=== PATIENT | female | born 1965 | race Hispanic/Latino ===

== ENCOUNTER 2022-03-05 17:15 | Emergency (ER) | payer OTHER ==
--- OUTSIDE RECORDS SUMMARY | 2022-03-05 17:18 | XMS REPORT | Continuity of Care Document ---
:1965 Author Organization [facility] t Address [address] [place] [address] Care Team Providers Name Role Phone GEORGIE Attending Clinician Unavailable CONFERENCE Attending Clinician Unavailable [id number] Attending Clinician Unavailable Carlyle KIRBY Attending Clinician [id number] Attending Clinician Unavailable LIBAN Attending Clinician Unavailable Gama VERA Attending Clinician Unavailable RENETTA Attending Clinician Unavailable Payers Payer Name Policy Type Policy Number Effective Date Expiration Date Rachel RODRIGUEZ AETNA 9 [id number] 2019 HISD SELECT ACO 00:00:00 Problems Condition Condition Condition Status Onset Resolution Last Treating Co mments Source Name Details Category Date Date Treatment Clinician Date Obesity Obesity Disease Active Fifi (BMI (BMI 8-18 Seybold 30.0-34.9) 30.0-34.9) 00:00: 00 Recurrent Recurrent Disease Active 2017-09 Ben chau urinary urinary 1-16 Seybold tract tract 00:00: infection infection 00 Allergies, Adverse Reactions, Alerts This patient has no known allergies or adverse reactions. Social History Social Habit Start Date Stop Date Quantity Comments Source History SDOH Fifi taylor Alcohol Std Drinks History CHINOH Fifi taylor Alcohol Binge History CHINNC Fifi taylor Alcohol Comment Alcohol intake 2021-07-11 2021-07-11 Lifetime Fifi Chau bold 00:00:00 00:00:00 non-drinker (finding) Tobacco use and 2019-10-09 2019-10-09 Smokeless tobacco Ke lsey Seybold exposure 00:00:00 00:00:00 non-user History SDOH 2019-10-09 2019-10-09 1 Fifi Scott claudia Alcohol Frequency 00:00:00 00:00:00 Sex [birth year] At [birth year] Fifi casanova 00:00:00 00:00:00 Smoking Status Start Date Stop Date Source Never smoked tobacco Fifi Juan Antonio lowery Medications Ordered Filled Start Stop Current Ordering Indication Dosage Frequency Signature Comments Components Source Medication Medication Date Date Medication? Clinician (SIG) Name Name Nitrofurant 2020-09 Yes [id number] 100mg Take 1 Fifi oimichael Monohyd 0-22 capsule Seybo ld Macro 100 00:00: (100 mg MG oral 00 total) by Capsule mouth 2 times daily Immunizations Ordered Immunization Filled Immunization Date Status Commen ts Source Name Name Influenza Virus 2021-07-09 Completed Fifi casanova Vaccine, No Preserv, 00:00:00 age 6 months and up Tdap- (Boostrix, 2021-05-05 Completed Fifi coleman Adacel) 00:00:00 Influenza Virus 2020-05-28 Completed Fifimyrna casanova Vaccine, No Preserv, 00:00:00 age 6 months and up Vital Signs Vital Name Observation Time Observation Value Comments Source Systolic blood pressure 2021-07-09 19:59:00 126 mm[Hg] Fifi Sealybeverley Diastolic blood 2021-07-09 19:59:00 66 mm[Hg] Ben lori ybbeverley pressure Heart rate 2021-07-09 19:59:00 68 /min Fifi Rachel [place] Body temperature 2021-07-09 19:59:00 36.61 Arlin Radha tab Zaragozaybbeverley Respiratory rate 2021-07-09 19:59:00 16 /min Radha barth Seybbeverley Body height 2021-07-09 19:59:00 154.9 cm Fifi Rachel [place] Body weight 2021-07-09 19:59:00 67.858 kg Fifimyrna barthlink BMI 2021-07-09 19:59:00 28.27 kg/m2 Fifi Rachel [place] Procedures Procedure Date / Time Performed Performing Clinician Sour e URINE CULTURE, ROUTINE 2021-07-09 21:52:00 Karime Tadeo URINALYSIS, COMPLETE 2021-07-09 21:52:00 Karime Tadeo MICROSCOPIC EXAMINATION 2021-07-09 21:52:00 Karime Tadeo URINE CULTURE, ROUTINE 2021-07-09 21:52:00 Karime Tadeo y Elmer RESULT WET PREP 2021-07-09 20:39:00 Karime Tadeo ld Encounters Start End Encounter Admission Attending Care Care Encounter Source Date/Time Date/Time Type Type Clinicians Facility Department ID 2021-11-15 2021-11-15 Outpatient FIFI CALIX [id number] Fifi 14:00:00 14:00:00 Seybol d 2021-10-12 2021-10-12 Outpatient TONY CALIX [id number] Fifi 00:00:00 00:00:00 AN, Seybol d BRITNEY 2021-10-12 2021-10-12 Outpatient CONFERENCE, FIFI CALIX [id number] Fifi 00:00:00 00:00:00 BDC Seybol d 2021-09-13 2021-09-13 Outpatient CONFERENCE, FIFI CALIX [id number] Fifi 00:00:00 00:00:00 BDC Seybol d 2021-09-13 2021-09-13 Outpatient TONY CALIX [id number] Fifi 00:00:00 00:00:00 AN, Seybol d BRITNEY 2021-09-09 2021-09-09 Outpatient FIFI CALIX [id number] Fifi 10:00:00 10:00:00 Seybol d 2021-09-06 2021-09-06 Outpatient FIFI CALIX [id number] Fifi 10:00:00 10:00:00 Seybol d 2021-08-03 2021-08-03 Outpatient TONY CALIX [id number] Fifi 00:00:00 00:00:00 AN, Seybol d BIRTNEY 2021-08-03 2021-08-03 Outpatient CONFERENCE, FIFI CALIX [id number] Fifi 00:00:00 00:00:00 BDC Seybol d 2021-07-30 2021-07-30 Outpatient FIFI CALIX [id number] Fifi 12:25:00 12:25:00 Seybol d 2021-07-30 2021-07-30 Outpatient FIFIMYRNA WESLEYSEY [id number] Fifi 12:20:00 12:20:00 Seybol d 2021-07-30 2021-07-30 Outpatient FIFI FIFI [id number] Fifi 12:15:00 12:15:00 Seybol d 2021-07-30 2021-07-30 Outpatient FIFI CALIX [id number] Fifi 12:10:00 12:10:00 Seybol d 2021-07-30 2021-07-30 Outpatient TONY CALIX [id number] Fifi 00:00:00 00:00:00 AN, Seybol d BRITNEY 2021-07-09 2021-07-09 Outpatient LAB45 FIFI CALIX [id number] Fifi 16:35:00 16:35:00 Seybol d 2021-07-09 2021-07-09 Outpatient FIFI CALIX [id number] Fifi 16:00:00 16:00:00 Seybol d 2021-07-09 2021-07-09 Office JOO Tadeo [id number] Fifi 14:37:08 15:07:08 Visit [facility] [id number] Seybold DIAGNOSTI [id number] C POY SIPPI [id number] 2021-07-09 2021-07-09 Outpatient RADMISAEL CALIX [id number] Fifi 15:00:00 15:00:00 AN, Seybol d BRITNEY 2021-07-09 2021-07-09 Outpatient [id number] FIFI CALIX [id number] Fifi 08:40:00 08:40:00 Seybol d 2021-07-09 2021-07-09 Outpatient [id number] FIFI CALIX [id number] Fifi 08:30:00 08:30:00 Seybol d 2021-05-27 2021-05-27 Outpatient RADHASAUL CALIX [id number] Fifi 00:00:00 00:00:00 AN, Seybol d BRITNEY 2021-05-13 2021-05-13 Outpatient LIBAN CALIX FIFI [id number] Fifi 00:00:00 00:00:00 Seybol d 2021-05-05 2021-05-05 Outpatient LAB45 FIFI FIFI [id number] Fifi 08:45:00 08:45:00 Seybol d 2021-05-05 2021-05-05 Outpatient TONY FIFI FIFI [id number] Fifi 08:00:00 08:00:00 AN, Seybol d BRITNEY 2021-03-30 2021-03-30 Outpatient LAB45 FIFI CALIX [id number] Fifi 11:25:00 11:25:00 Seybol d 2021-03-30 2021-03-30 Outpatient CHUY FIFI CALIX [id number] Fifi 10:45:00 10:45:00 ASMI Seybol d 2020-12-28 2020-12-28 Outpatient HANSDARLENE [facility] [id number] [place] 00:00:00 00:00:00 KAREN [address] 2020-12-07 2020-12-07 Outpatient [facility] [id number] [place] 00:00:00 00:00:[address] Results Test Description Test Time Test Comments Results Result Comments Source URINE CULTURE, ROUTINE 2021-07-11 06:06:00 Test Item Value Reference Range Interpretation Comme nts URINE CULTURE, ROUTINE (test code = Final report 630-4) BRANDON (test code = BRANDON) [facility] results reported in Eastern Time. [facility] Clinical Information:SRC:Urine*Urine ?[facility] Source of Specimen:Urine*Urine Fifi PayneURINE CULTURE, ROUTINE [id number] 06:06:00RESULT 1Comment: Mixed urogenital flora10,000-25,000 colony forming units per mL [facility]IE Calix ElmerURINALYSIS, [id number] 11:11:00 Test Item Value Reference Range Interpretation Comments SPECIFIC GRAVITY 1.005-1.030 (test code = 2965-2) PH (test code = 5.0-7.5 5803-2) URINE-COLOR (test Yellow Yellow code = 5778-6) APPEARANCE (test Clear Clear code = 5767-9) WBC ESTERASE (test Negative Negative code = 5799-2) PROTEIN (test code Negative Negative/Trace = 66985-5) GLUCOSE (test code Negative Negative = 2349-9) KETONES (test code Negative Negative = 2514-8) OCCULT BLOOD (test Negative Negative code = 5794-3) BILIRUBIN (test Negative Negative code = 5770-3) UROBILINOGEN,SEMI-Q 0.2 mg/dL 0.2-1.0 N (test code = 20264-5) NITRITE, URINE Negative Negative (test code = 5802-4) MICROSCOPIC See below: Microscopic was EXAMINATION (test indicated and was code = 93888-6) performed. BRANDON (test code = [facility] results BRANDON) reported in Eastern Time. [facility] Clinical Information:SRC: Urine*Urine ?[facility] Source of Specimen: Fifi ZaragozaedilbertoMICROSCOPIC [id number] 11:11:00 Test Item Value Reference Range Interpretation Comments WBC (test code = None seen See_Comment [Automated 5821-4) message] The sy stem which generated this result transmitted reference range : 0 - 5 /hpf. The reference range was not used to interpret this result as normal/abnormal . RBC (test code = 0-2 See_Comment [Automated 63397-6) message] The sy stem which generated this result transmitted reference range : 0 - 2 /hpf. The reference range was not used to interpret this result as normal/abnormal . EPITHELIAL CELLS None seen See_Comment [Automated (NON RENAL) (test message] T system code = 5787-7) which generat ed this result transmitted reference range : 0 - 10 /hpf. The reference range was not used to interpret this result as normal/abnormal . CASTS (test code = None seen None seen /lpf 84901-6) BACTERIA (test code None seen None seen/Few = 5769-5) BRANDON (test code = [facility] results BRANDON) reported in Eastern Time. [facility] Clinical Information:SRC: Urine*Urine ?[facility] Source of Specimen: Fifi PayneMOIRAT [id number] 22:54:00 Test Item Value Reference Range Interpretation Comments TRICHOMONAS EXAM (test Negative Negative code = 29025-6) YEAST EXAM (test code = Negative Negative 94755-9) CLUE CELL EXAM (test Negative Negative code = 84498-3) BRANDON (test code = BRANDON) [facility] results reported in Eastern Time. [facility] Clinical Information:SRC:Genit al*Vaginal swab ? [facility] Source of Specimen:Genital*Vagi nal swab Fifi Payne
[2022-03-05] MEDS ORDERED: LIDOCAINE 1% 20 ML MDV ONE (17:55)
--- NOTE | 2022-03-05 18:07 | RAD REPORT ---
EXAM DESCRIPTION: RAD - Hand Right 3 View - 03/05/2022 6:00 pm CLINICAL HISTORY: PAIN COMPARISON: No comparisons FINDINGS: No fracture or dislocation evident.
--- NOTE | 2022-03-05 18:07 | RAD REPORT ---
EXAM DESCRIPTION: RAD - Knee Left 3 View - 03/05/2022 6:00 pm CLINICAL HISTORY: PAIN COMPARISON: No comparisons FINDINGS: No fracture or dislocation suspected.
--- NOTE | 2022-03-05 18:34 | ER ---
Nurse's Notes [facility] Name: Jazmine Barnett Age: 56 yrs Sex: Female : 1965 Arrival Date: 03/05/2022 Time: 17:18 Bed 12 Private MD: Diagnosis: Laceration without foreign body, left knee Presentation: 03/05 17:31 Chief complaint: Patient states[place], pt c/o pain to left aa5 knee and right hand. Denies head injury, denies LOC. Coronavirus screen: At this time, the client does not indicate any symptoms associated with coronavirus-19. Ebola Screen: No symptoms or risks identified at this time. Initial Sepsis Screen: Does the patient meet any 2 criteria? No. Patient's initial sepsis screen is negative. Does the patient have a suspected source of infection? No. Patient's initial sepsis screen is negative. Risk Assessment: Do you want to hurt yourself or someone else? Patient reports no desire to harm self or others. Onset of symptoms was March 05, 2022. 17:31 Acuity: ASKHAN 4 aa5 17:31 Method Of Arrival: Wheelchair aa5 Historical: - Allergies: 17:32 No Known Allergies; aa5 - PMHx: 17:32 None; aa5 - PSHx: 17:32 None; aa5 - Immunization history:: Adult Immunizations unknown. - Social history:: Smoking status: Patient denies any tobacco usage or history of. Patient/guardian denies using alcohol, street drugs, The patient lives with family. - Family history:: not pertinent. Screenin:49 Abuse screen: Denies threats or abuse. Denies injuries from another. Nutritional ss screening: No deficits noted. Tuberculosis screening: Never had TB. Fall Risk None identified. Assessment: 18:00 Reassessment: Wound cleansed with Saline and Soap. ss 18:49 General: Appears in no apparent distress. comfortable, Behavior is calm, cooperative. ss Neuro: Level of Consciousness is awake, alert, obeys commands, Oriented to person, place, time, situation. Cardiovascular: Capillary refill < 3 seconds is brisk in bilateral fingers. Respiratory: Airway is patent Respiratory effort is even, unlabored, Respiratory pattern is regular, symmetrical. EENT: Oral mucosa is moist. Derm: Skin is intact, is healthy with good turgor, Skin is dry, Skin is pink, warm \T\ dry. normal. Musculoskeletal: Circulation, motion, and sensation intact. Range of motion: intact in all extremities, Swelling absent. Vital Signs: 17:31 BP 132 / 77; Pulse 85; Resp 16 S; Temp 98.5(TE); Pulse Ox 100% on R/A; Weight 65.77 kg aa5 (R); Height 5 ft. 3 in. (160.02 cm) (R); 17:31 Body Mass Index 25.69 (65.77 kg, 160.02 cm) aa5 ED Course: 17:18 Patient arrived in ED. mr 17:31 Triage completed. aa5 17:31 Arm band placed on. aa5 17:34 Sobia Yeung MD is Attending Physician. ma2 17:43 China Jain, ELISABETH is Primary Nurse. ss 18:02 XRAY Knee LEFT 3 view In Process Unspecified. EDMS 18:02 Hand Right 3 View XRAY In Process Unspecified. EDMS 18:49 Patient has correct armband on for positive identification. Bed in low position. ss 18:49 Assist provider with laceration repair on left knee that was 2.5 cm. or less using shayy. Set up tray. Performed by Sobia Yeung MD Dressed with 4X4s, Kerlix, Patient tolerated well. Patient did not have IV access during this emergency room visit. Administered Medications: 18:18 Drug: Lidocaine (1 %) 10 ml {Note: administered now by Dr. Yeung..} Volume: 20 ml; ss Route: Infiltration; Medication: 18:49 VIS not applicable for this client. ss Outcome: 18:34 Discharge ordered by . ma2 18:49 Discharged to home ambulatory, with family. ss 18:49 Condition: good 18:49 Discharge instructions given to patient, family, Instructed on discharge instructions, follow up and referral plans. medication usage, Demonstrated understanding of instructions, follow-up care, medications, Prescriptions given X 2. 18:53 Patient left the ED. ss Signatures: Dispatcher [employer] [facility] Jessica MelgarMary Ellen RN RN [facility] China Jain RN RN Alzahri, Mohammad, MD MD ma2
--- NOTE | 2022-03-05 18:35 | EDPHYS ---
Physician Documentation [facility] Name: Jazmine Barnett Age: 56 yrs Sex: Female : 1965 Arrival Date: 03/05/2022 Time: 17:18 Bed 12 Private MD: ED Physician Sobia Yeung HPI: 03/05 17:42 This 56 yrs old Female presents to ER via Wheelchair with complaints of Fall ma2 Injury, Knee Injury, Hand Injury. 17:42 This is a 56-year-old female who [place] the beach tripped with a wet rock, fell on her ma2 right hand left knee sustained abrasion to dorsal aspect of right hand, and laceration to left knee, denies any trauma no pain anywhere else, patient states she has Tdap up-to-date.. Historical: - Allergies: 17:32 No Known Allergies; aa5 - PMHx: 17:32 None; aa5 - PSHx: 17:32 None; aa5 - Immunization history:: Adult Immunizations unknown. - Social history:: Smoking status: Patient denies any tobacco usage or history of. Patient/guardian denies using alcohol, street drugs, The patient lives with family. - Family history:: not pertinent. ROS: 17:42 Constitutional: Negative for fever, chills, and weight loss. ma2 17:42 All other systems are negative. Exam: 17:42 Constitutional: This is a well developed, well nourished patient who is awake, alert, ma2 and in no acute distress. Head/Face: Normocephalic, atraumatic. Eyes: Pupils equal round and reactive to light, extra-ocular motions intact. Lids and lashes normal. Conjunctiva and sclera are non-icteric and not injected. Cornea within normal limits. Periorbital areas with no swelling, redness, or edema. ENT: Nares patent. No nasal discharge, no septal abnormalities noted. Tympanic membranes are normal and external auditory canals are clear. Oropharynx with no redness, swelling, or masses, exudates, or evidence of obstruction, uvula midline. Mucous membranes moist. Neck: Trachea midline, no thyromegaly or masses palpated, and no cervical lymphadenopathy. Supple, full range of motion without nuchal rigidity, or vertebral point tenderness. No Meningismus. Chest/axilla: Normal chest wall appearance and motion. Nontender with no deformity. No lesions are appreciated. Cardiovascular: Regular rate and rhythm with a normal S1 and S2. No gallops, murmurs, or rubs. Normal PMI, no JVD. No pulse deficits. Respiratory: Lungs have equal breath sounds bilaterally, clear to auscultation and percussion. No rales, rhonchi or wheezes noted. No increased work of breathing, no retractions or nasal flaring. Abdomen/GI: Soft, non-tender, with normal bowel sounds. No distension or tympany. No guarding or rebound. No evidence of tenderness throughout. Back: No spinal tenderness. No costovertebral tenderness. Full range of motion. Skin: Warm, dry with normal turgor. Normal color with no rashes, no lesions, and no evidence of cellulitis. MS/ Extremity: Lip laceration, superficial, otherwise no induration, wound Is Intact, Otherwise Knee Joint Has Full Range Of Motion with No Limitation, No Signs of Fracture or Bony Tenderness, Otherwise pulses equal, no cyanosis. Neurovascular intact. Full, normal range of motion. Right hand, otherwise no laceration or bony tenderness, full range of motion Neuro: Awake and alert, GCS 15, oriented to person, place, time, and situation. Cranial nerves II-XII grossly intact. Motor strength 5/5 in all extremities. Sensory grossly intact. Cerebellar exam normal. Normal gait. Vital Signs: 17:31 BP 132 / 77; Pulse 85; Resp 16 S; Temp 98.5(TE); Pulse Ox 100% on R/A; Weight 65.77 kg aa5 (R); Height 5 ft. 3 in. (160.02 cm) (R); 17:31 Body Mass Index 25.69 (65.77 kg, 160.02 cm) aa5 Laceration: 17:42 Wound Repair of 1cm ( 0.4in ) subcutaneous laceration to left leg. Distal ma2 neuro/vascular/tendon intact. Anesthesia: Local anesthetic administered with 1 mls of 1% lidocaine w/ Epi. Wound prep: Simple cleansing. Skin closed with 5 1-0 Cylinder using simple sutures and sterile technique. Dressed with 4x4's. Patient tolerated well. MDM: 17:34 Patient medically screened. ma2 17:42 Differential diagnosis: contusion, fracture, sprain, strain. Data reviewed: vital ma2 signs, nurses notes. Counseling: I had a detailed discussion with the patient and/or guardian regarding: the historical points, exam findings, and any diagnostic results supporting the discharge/admit diagnosis, the presence of at least one elevated blood pressure reading (>120/80) during this emergency department visit, the need for outpatient follow up. Response to treatment: the patient's symptoms have markedly improved after treatment. 03/05 17:36 Order name: XRAY Knee LEFT 3 view; Complete Time: 18:33 ma2 03/05 17:36 Order name: Hand Right 3 View XRAY; Complete Time: 18:33 ma2 03/05 17:42 Order name: Dressing - Wound; Complete Time: 18:36 ma2 03/05 17:42 Order name: Setup Suture Tray; Complete Time: 18:18 ma2 Administered Medications: 18:18 Drug: Lidocaine (1 %) 10 ml {Note: administered now by Dr. Yeung..} Volume: 20 ml; ss Route: Infiltration; Disposition Summary: 03/05/22 18:34 Discharge Ordered Location: Home ma2 Condition: Stable ma2 Diagnosis - Laceration without foreign body, left knee ma2 Followup: ma2 - With: Private Physician - When: Tomorrow - Reason: If symptoms return, Continuance of care Discharge Instructions: - Discharge Summary Sheet ma2 - Laceration Care, Adult, Cmki-jw-Zocl ma2 Forms: - Medication Reconciliation Form ma2 - Thank You Letter ma2 - Antibiotic Education ma2 - Prescription Opioid Use ma2 Prescriptions: - toradol 10 mg - take 1 tablet by ORAL route 3 times per day; 20 tablet; Refills: 0, Product ma2 Selection Permitted - Augmentin 875-125 mg Oral Tablet - take 1 tablet by ORAL route every 12 hours for 10 days; 20 tablet; Refills: 0, ma2 Product Selection Permitted Signatures: Dispatcher [employer] Mary Ellen Moralez RN RN aa5 China Jain RN RN ss Sobia Yeung MD MD ma2 Corrections: (The following items were deleted from the chart) 18:34 17:42 Wound Repair of 1cm ( 0.4in ) subcutaneous laceration to left leg. Distal ma2 neuro/vascular/tendon intact. Anesthesia: Local anesthetic administered with 1 mls of 1% lidocaine w/ Epi. Wound prep: Simple cleansing. Skin closed with 2 1-0 Farooq using simple sutures and sterile technique. Dressed with 4x4's. Patient tolerated well. ma2
[2022-03-05 19:09] VITALS: BP 132/77; TEMP 98.5; O2SAT 100
== END 2022-03-05 18:53 | disposition home or self-care (01) ==
LOC: ER 17:15
PROC: 0JQP0ZZ Repair Left Lower Leg Subcutaneous Tissue and Fascia, Open Approach (ICD-10-PCS; principal; 2022-03-05)
DX: S81.012A Laceration without foreign body, left knee, initial encounter (principal); W01.0XXA Fall on same level from slipping, tripping and stumbling without subsequent striking against object, initial encounter; Y93.89 Activity, other specified; Y92.832 Beach as the place of occurrence of the external cause
CPT/HCPCS: 99284